=== PATIENT | male | born 1945 | race Caucasian/White ===

== ENCOUNTER 2019-05-17 22:27 | Emergency (ER) | payer OTHER ==
--- NOTE | 2019-05-17 23:12 | ED ---
GI/ HPI - HPI Summary HPI Summary: 73 year old M presenting to [facility] via private car with a chief complaint of sensation of gastric discomfort since yesterday with concern for SBO with hx of same. He states that he did not feel like eating dinner last night and took 2 Benadryl and a Neurontin shortly after. He was uncomfortable last night and woke up this morning at 0600 with no relief. Patient experienced abdominal pain 4/10 in severity and vomiting later in the day, with his pain gradually increasing. Patient states that he had a large bowel movement earlier this morning, and his last bowel movement this afternoon was smaller. He also states that he urinated very little today. Patient denies pain at the moment and denies a fever. Patient has a PMHx of small bowel obstructions: one 40 years ago , another 5 years ago, and the last 2 years ago. Patient underwent a surgical procedure for his small bowel obstruction 40 years ago. 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 PSHx also includes appendectomy. Patient denies smoking, marijuana use, and alcohol use. He denies any FHx. - History of Current Complaint Chief Complaint: EDAbdPain Time Seen by Provider: 05/17/19 22:58 Stated Complaint: SMALL BOWEL OBSTRUCTION SC PT Hx Obtained From: Patient Onset/Duration: Started Days Ago, Still Present Severity: Moderate Current Severity: None - Patient is currently experiencing no pain. Pain Intensity: 4 Pain Characteristics: Aching Associated Signs and Symptoms: Positive: Nausea, Vomiting, Diarrhea - Patient had a large bowel movement earlier this morning., Other: - Discomfort.. Negative: Fever Aggravating Factor(s): Nothing Alleviating Factor(s): Nothing - Allergy/Home Medications Allergies/Adverse Reactions: Allergies Allergy/AdvReac Type Severity Reaction Status Date / Time No Known Allergies Allergy Verified 05/17/19 22:34 Home Medications: Home Medications Gabapentin CAP(*) [Neurontin 300 CAP(*)] 300 mg PO Q4HR 05/18/19 [History Confirmed 05/18/19] PMH/Surg Hx/FS Hx/Imm Hx Endocrine/Hematology History: Denies: Hx Diabetes Cardiovascular History: Denies: Hx Hypertension GI History: Reports: Hx Obstructive Bowel - One 40 years ago, one 5 years ago, another 2 years ago. , Other GI Disorders - Appendicitis Musculoskeletal History: Reports: Other Musculoskeletal History - Absence of left upper extremity. - Surgical History Surgical History: Yes Surgery Procedure, Year, and Place: LUE amputation, SBO x3, appendectomy - Immunization History Immunizations Up to Date: Yes Infectious Disease History: No Infectious Disease History: Denies: Traveled Outside the [place] in Last 30 Days - Family History Known Family History: Negative: Cardiac Disease, Hypertension, Diabetes - Social History Alcohol Use: None Hx Substance Use: No Substance Use Type: Reports: None Hx Tobacco Use: No Smoking Status (MU): Never Smoked Tobacco - Additional Comments History Additional Comments: mx SBOs, appendectomy, left arm amputation Review of Systems - ROS Summary Review of Systems Summary: Home Medications Medication Instructions Recorded Confirmed Type Gabapentin CAP(*) [Neurontin 300 300 mg PO Q4HR 05/18/19 05/18/19 History CAP(*)] Positive: Other - General discomfort. . Negative: Fever Positive: Abdominal Pain - Patient experienced abdominal pain earlier, but pain has since subsided. , Vomiting, Diarrhea, Nausea All Other Systems Reviewed And Are Negative: Yes Physical Exam - Summary Physical Exam Summary: General: Well-developed, Well-nourished male. No acute distress. HEENT: Normocephalic, Atraumatic. Eyes: Conjuctiva normal, PERRL. Oropharynx: Clear, mucous membranes moist, (-) exudates. Neck: Soft, FROM, (-) lymphadenopathy, (-) thyromegaly, (-) JVD. Cardiovascular: Normal sinus rhythm, (-) murmur. Lungs: Clear to auscultation bilaterally (-) wheezes, (-) rales, (-) rhonchi. Abdomen: Soft, non-tender, non-distended, (-) organomegaly, normal bowel sounds. Back: (-) CVA tenderness Extremities: No edema. Absence of left upper extremity. Skin: Warm, dry, (-) rash. Neuro: Alert and oriented x3, moves all extremities equally. No ataxia. No gait disturbance. No sensory deficit. Normal strength, normal sensation. Psychiatric: Mood normal, affect normal. Triage Information Reviewed: Yes Vital Signs On Initial Exam: Initial Vitals Temp Pulse Resp BP Pulse Ox 98.6 F 94 16 142/88 96 05/17/19 22:30 05/17/19 22:30 05/17/19 22:30 05/17/19 22:30 05/17/19 22:30 Vital Signs Reviewed: Yes Procedures - Sedation Patient Received Moderate/Deep Sedation with Procedure: No Diagnostics - Vital Signs Vital Signs Temp Pulse Resp BP Pulse Ox 05/17/19 22:30 98.6 F 94 16 142/88 96 - Laboratory Result Diagrams: 05/17/19 23:20 05/17/19 23:20 Lab Statement: Any lab studies that have been ordered have been reviewed, and results considered in the medical decision making process. - CT Abdomen/Pelvis CT Interpretation Completed By: Radiologist Summary of CT Findings: IMPRESSION: 1. Abnormal distension of loops of proximal small bowel. Transition zone. appears to be in the central abdomen in which there is some thickening of the mucosa. This thickening of the mucosa may be due to an infectious or inflammatory process. No bowel wall pneumatosis or mesenteric inflammation. No mesenteric or periaortic adenopathy. No abdominal mass is observed. 2. Atrophy of the right kidney. Calcified stones located in the superior and inferior pole of the left kidney which are nonobstructing. Focal renal cortical atrophy of the inferior pole of the left kidney. This may be due to a prior infectious, inflammatory or ischemic process. 3. 5.9 mm subpleural nodule involving the right middle lung.For patients at low risk ( minimal or absent history of smoking and of other known risk factors), no routine follow-up is indicated. For patients at high risk (history of smoking or of other known risk factors), consider optional CT Chest at 12 months. This report has been reviewed by Dr. Thrasher. Re-Evaluation - Re-Evaluation First Eval Re-Evaluation Time: 12:59 Comment: Patient states that he is feeling quite well and is going to try to eat and drink something. Second Eval Re-Evaluation Time: 01:43 Comment: I discussed all results. Discussed all symptoms that warrant return to the ED. GIGU Course/Dx - Course Course Of Treatment: 73-year-old male presents from home with abdominal pain. He states he woke up yesterday morning with belly pain. He had decreased appetite. Didn't really eat supper. He took 2 Benadryl and went to bed. He was able to sleep through the night. Had a large bowel movement this morning. Not been able to eat or drink much. Small bowel movement this afternoon. Has had nausea. One episode of vomiting. Afebrile. Patient is concerned about a small bowel obstruction. Has a history of small bowel obstructions previously. Upon arrival he states his pain has improved. His exam is essentially unremarkable. On workup patient has a slightly elevated white count. CT abdomen and pelvis demonstrates some swelling of the large intestine. No definitive obstruction. Believed to be secondary to inflammation or infection. Discussed the patient was feeling quite well at this time. Patient is able to tolerate food and liquid. He is discharged home. Follow up with PCP. Ffollow up sooner for any worsening symptoms. - Diagnoses Provider Diagnoses: Abdominal pain with vomiting Discharge ED - Sign-Out/Discharge Documenting (check all that apply): Patient Departure - Discharge to home. - Discharge Plan Condition: Stable Disposition: HOME Patient Education Materials: Acute Nausea and Vomiting (ED), Abdominal Pain (ED ) Referrals: [facility] [Outside] - 3 Days Additional Instructions: Please follow up with your primary care physician within three days. Please return to the Emergency Department for any new or worsening symptoms. - Billing Disposition and Condition Condition: STABLE Disposition: Home - Attestation Statements Document Initiated by Nick: Yes Documenting Scribe: Sridevi Ruiz Provider For Whom Nick is Documenting (Include Credential): Diane Thrasher MD Scribe Attestation: Janett Chris Natalie George, scribed for Diane Thrasher MD on 05/18/19 at 0538. Scribe Documentation Reviewed: Yes Provider Attestation: The documentation as recorded by the Janett mathur Natalie George accurately reflects the service I personally performed and the decisions made by Diane langston MD Status of Scribe Document: Viewed
[2019-05-17 23:31] LABS: ABS Lymphocytes 0.3 10^3/ul (1.0-4.8); ABS Monocytes 0.5 10^3/ul (0-0.8); ABS Neutrophils 12.2 10^3/ul (1.5-7.7); Eosinophil % 0.1 %; Hematocrit 47 % (42-52); Hemoglobin 15.9 g/dL (14.0-18.0); Mean Corpuscular HGB Conc 34 g/dL (31-36); Mean Corpuscular Hemoglobin 32 pg (27-31); Mean Corpuscular Volume 95 fL (80-94); Mean Platelet Volume 8.9 fL (7.4-10.4); Platelet Count 194 10^3/uL (150-450); Red Blood Count 5.01 10^6 /uL (4.18-5.48); Red Cell Distribution Width 13 % (10-15)
[2019-05-17 23:40] LABS: INR 1.1 (0.82-1.09)
[2019-05-17 23:48] LABS: Albumin 4.1 g/dL (3.2-5.2); Albumin/Globulin Ratio 1.7 (1-3); BUN/Creatinine Ratio 14.7 (8-20); C Reactive Protein 6.06 mg/L (<8.01); Calcium 9.2 mg/dL (8.6-10.3); EGFR African American 86.4 (>60); EGFR Non-African American 71.4 (>60); Globulin 2.4 g/dL (2-4); Potassium 4.2 mmol/L (3.5-5.0); Total Bilirubin 1.1 mg/dL (0.2-1.0); Total Protein 6.5 g/dL (6.4-8.9)
[2019-05-18 00:02] LABS: Urine Appearance Clear; Urine Bilirubin Negative (Negative); Urine Blood Negative (Negative); Urine Color Yellow; Urine Glucose Negative (Negative); Urine Ketones Negative (Negative); Urine Nitrite Negative (Negative); Urine Protein Negative (Negative); Urine Specific Gravity 1.017 (1.010-1.030); Urine Urobilinogen Negative (Negative)
[2019-05-18] MEDS ORDERED: Iohexol 300* (CONTRAST) 10 ML SDV IV ONE (00:05)
== END 2019-05-18 01:54 | disposition home or self-care (01) ==
LOC: ED 22:27
DX: R10.9 Unspecified abdominal pain (principal); R11.10 Vomiting, unspecified
CPT/HCPCS: 36415; 74177; 80053; 81003; 83605; 83690; 85025; 85610; 86140; 99282; Q9967